=== PATIENT | male | born 1970 | race Caucasian/White ===

== ENCOUNTER 2017-02-21 16:55 | Emergency (ER) | payer OTHER ==
[~2017-02-21] VITALS: Ht 193 cm; Wt 106.8 kg
[2017-02-21] MEDS ORDERED: HYDR12.55 PO (17:07)
[2017-02-21] MEDS ORDERED: DOXY-278 PO (17:07)
[2017-02-21] MEDS ORDERED: OMEP10CASR PO (17:07)
[2017-02-21] MEDS ORDERED: DOXY100C37 PO (18:37)
[2017-02-21 18:43] VITALS: BP 124/85
== END 2017-02-21 18:43 | disposition home or self-care (01) ==
LOC: M ED 16:55
DX: Z48.02 Encounter for removal of sutures (principal); F17.210 Nicotine dependence, cigarettes, uncomplicated; Z79.899 Other long term (current) drug therapy; Z88.0 Allergy status to penicillin